=== PATIENT | male | born 1990 | race Caucasian/White ===

== ENCOUNTER 2020-10-26 07:31 | Emergency (ER) | payer OTHER ==
[~2020-10-26 07:31] MED LIST: NAPROSYN500 MG PO
[2020-10-26] MEDS ORDERED: IBUPROFEN600 MG PO (08:44)
[2020-10-26] MEDS ORDERED: BACTROBAN OINT22 GM EXT (08:44)
== END 2020-10-26 08:58 | disposition home or self-care (01) ==
LOC: ER1 07:31
DX: S60.222A Contusion of left hand, initial encounter (principal); Z23 Encounter for immunization; Z88.1 Allergy status to other antibiotic agents; I10 Essential (primary) hypertension; W22.8XXA Striking against or struck by other objects, initial encounter; Y99.0 Civilian activity done for income or pay
CPT/HCPCS: 73130; 90471; 90715; 99283